=== PATIENT | female | born 1955 | race Caucasian/White ===

== ENCOUNTER 2025-05-09 01:25 | Outpatient (CLI) | payer MEDICARE, SELFPAY ==
--- NOTE | 2025-05-09 06:15 | DI.RAD_ITS ---
Exam(s) XR FOOT LT COMPLETE EXAM: XR FOOT LT COMPLETE CLINICAL HISTORY: Left foot pain,M79.672. TECHNIQUE: 2D digital imaging was performed of the left foot. Three images were obtained. AP, oblique and lateral views were obtained. COMPARISON: No exams were available for comparison FINDINGS: BONES: No acute fracture is present. No bony destructive lesion is seen. There is a small enthesophyte at the posterior calcaneus. There is a small plantar calcaneal spur. There is an old well corticated triangular density at the medial aspect of the 1st MTP joint. JOINTS: No dislocation present. There are degenerative changes seen in the foot. The findings are marked at the 1st MTP joint where there is marked joint space narrowing. Osteophytes are also present. There is a subchondral cyst in the head of the 1st metatarsal. SOFT TISSUE: Normal. 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 DATA REPOSITORY: RADIATION DOSE DELIVERED:
== END 2025-05-09 01:45 ==
PROVIDERS: PCP Student in an Organized Health Care Education/Training Program; Visit Provider Podiatrist
DX: M79.672 Pain in left foot (principal); M84.375A Stress fracture, left foot, initial encounter for fracture; M25.572 Pain in left ankle and joints of left foot; R60.0 Localized edema; Y93.01 Activity, walking, marching and hiking
CPT/HCPCS: 29580; 99203; 29850; 73630

== ENCOUNTER 2025-06-01 01:21 | Outpatient (CLI) | payer MEDICARE, SELFPAY ==
--- NOTE | 2025-06-01 07:45 | DI.RAD_ITS ---
Exam(s) XR FOOT LT COMPLETE EXAM: XR FOOT LT COMPLETE CLINICAL HISTORY: Second MPJ, 2nd and 3rd metatarsal pain,metatarsophalangeal sprain,lt foot. TECHNIQUE: 2D digital imaging was performed. COMPARISON: CR XR FOOT LT COMPLETE from 05/09/2025 FINDINGS: 3 views No evidence of acute fracture or diastasis of the Lisfranc joint. There is hallux valgus and degenerative narrowing of the medial aspect of the great toe metatarsophalangeal joint. No osseous lesions nor erosions evident. No pes planus. Moderate size inferior calcaneal spur is noted. There is no c alcification in the plantar fascia. There is a small enthesophyte on the posterior calcaneus Achilles insertion site. IMPRESSION: Hallux valgus. Moderate degenerative changes in the great toe metatarsophalangeal joint. No acute fractures evident. DATA REPOSITORY: RADIATION DOSE DELIVERED:
== END 2025-06-01 01:41 ==
LOC: DI 01:21
PROVIDERS: PCP Student in an Organized Health Care Education/Training Program; Visit Provider Podiatrist
DX: M20.32 Hallux varus (acquired), left foot (principal); M25.562 Pain in left knee
CPT/HCPCS: 73630

== ENCOUNTER → 2025-07-13 13:00 | Outpatient (BNVA) | payer MEDICARE, SELFPAY | PROVIDERS: PCP Student in an Organized Health Care Education/Training Program; Referring Provider Student in an Organized Health Care Education/Training Program; Visit Provider Podiatrist | DX: M79.672 Pain in left foot (principal); M25.572 Pain in left ankle and joints of left foot; M84.375A Stress fracture, left foot, initial encounter for fracture; S93.522A Sprain of metatarsophalangeal joint of left great toe, initial encounter; R60.0 Localized edema; M81.0 Age-related osteoporosis without current pathological fracture; X58.XXXA Exposure to other specified factors, initial encounter | CPT/HCPCS: 99214 ==

== ENCOUNTER → 2025-09-07 14:32 | Outpatient (BNVA) | payer MEDICARE, SELFPAY | PROVIDERS: PCP Student in an Organized Health Care Education/Training Program; Referring Provider Student in an Organized Health Care Education/Training Program; Visit Provider Podiatrist | DX: M25.572 Pain in left ankle and joints of left foot (principal); S93.522D Sprain of metatarsophalangeal joint of left great toe, subsequent encounter; R60.0 Localized edema; M81.0 Age-related osteoporosis without current pathological fracture; X58.XXXD Exposure to other specified factors, subsequent encounter | CPT/HCPCS: 99213 ==